=== PATIENT | female | born 1985 | race Caucasian/White ===

== ENCOUNTER 2024-03-10 13:33 | Inpatient (IN) ==
[2024-03-10] MEDS ORDERED: Lidocaine 1% VIAL 10 MG/ML 30 ML VIAL INJ PRN (14:53)
[2024-03-10 15:21] LABS: ABS Basophils 0.2 10^3/uL (0.0-0.1); ABS Lymphocytes 2.4 10^3/uL (1.0-4.8); ABS Monocytes 0.7 10^3/uL (0.0-0.9); ABS Neutrophils 9.6 10^3/uL (1.5-7.6); Eosinophil % 0.3 %; Hematocrit 42.3 % (35-45); Hemoglobin 14.4 g/dL (11.5-14.3); Lymphocyte % 18.8 %; Mean Corpuscular Volume 88.2 fL (80-97); Platelet Count 282 10^3/uL (150-450); Red Blood Count 4.79 10^6/uL (3.63-4.92); Red Cell Distribution Width 14.1 % (12-17); White Blood Count 12.9 10^3/uL (3.8-11.8)
[2024-03-10] MEDS: Lactated Ringers 1000 ml BAG 1,000 ML IV ONE (15:21)
[2024-03-10 15:55] LABS: Urine Benzodiazepine Screen None Detected (None Detect); Urine Cannabinoids Screen None Detected (None Detect); Urine Opiates Screen None Detected (None Detect)
[2024-03-10] MEDS: OBEPIDURAL (200 ML) 200 ML EPIDURAL ONE (16:08)
[2024-03-10] MEDS: Lactated Ringers 1000 ml BAG 1,000 ML IV SCH (16:09)
[2024-03-10] MEDS ORDERED: Sodium Citrate/Citric Acid LIQ 15 ML UDC PO PRN (16:39)
[2024-03-10] MEDS ORDERED: Phenylephrine 40 mcg/mL 10mL (400mcg) SYRINGE IV PUSH PRN ×2 (16:39)
[2024-03-10] MEDS ORDERED: OBEPIDURAL (200 ML) 200 ML EPIDURAL SCH (17:00)
[2024-03-10] MEDS ORDERED: Bupivacaine 0.25% w/EPI 10 ML SDV ONE (17:25)
[2024-03-10] MEDS ORDERED: Lidocaine 2% PF 5 ML VIAL ONE (17:25)
[2024-03-10 17:27] LABS: Urine Appearance Clear; Urine Bilirubin Negative (Negative); Urine Blood Negative (Negative); Urine Color Yellow; Urine Glucose Negative (Negative); Urine Ketones 2+ (Negative); Urine Nitrite Negative (Negative); Urine Protein Trace (Negative); Urine Specific Gravity 1.018 (1.002-1.030); Urine Urobilinogen Negative (Negative)
[2024-03-10] MEDS ORDERED: Ondansetron 4 mg VIAL 2 MG/ML 2 ml VIAL IV PRN (17:31)
[2024-03-10] MEDS: Oxytocin in LR 20,000 MILLI.UNIT/1,000 ML BAG IV SCH (20:50)
[2024-03-10] MEDS: Witch Hazel PAD JAR TOPICAL PRN (23:06)
[2024-03-10] MEDS: Dibucaine 1% OINT 28.35 GM TUBE PR PRN (23:06)
[2024-03-11] MEDS: Lidocaine 1.5% EPI 1:200,000 30 ML SDV ONE (05:15)
[2024-03-11] MEDS: Lactated Ringers 1000 ml BAG 1,000 ML IV ONE (05:15)
[2024-03-11] MEDS: fentaNYL 100 mcg/2 ml 50 MCG/ML VIAL ONE (05:15)
[2024-03-11] MEDS: Oxytocin in LR 20,000 MILLI.UNIT/1,000 ML BAG IV ONE (05:16)
[2024-03-11 06:30] LABS: ABS Basophils 0.1 10^3/uL (0.0-0.1); ABS Eosinophils 0.1 10^3/uL (0.0-0.5); ABS Lymphocytes 3.1 10^3/uL (1.0-4.8); ABS Neutrophils 10.3 10^3/uL (1.5-7.6); ABS Nucleated RBC 0.03 10^3/ul; Eosinophil % 0.4 %; Hematocrit 30.9 % (35-45); Hemoglobin 10.8 g/dL (11.5-14.3); Lymphocyte % 21.5 %; Mean Corpuscular Hemoglobin 30.5 pg (27-33); Mean Corpuscular Volume 87.2 fL (80-97); Mean Platelet Volume 8.5 fL (7.5-11.2); Nucleated Red Blood Cells % 0.2 %/100WBC (0.0-0.8); Platelet Count 221 10^3/uL (150-450); Red Blood Count 3.54 10^6/uL (3.63-4.92); Red Cell Distribution Width 13.9 % (12-17); White Blood Count 14.5 10^3/uL (3.8-11.8)
[2024-03-11] MEDS: Lactated Ringers 1000 ml BAG 1,000 ML IV SCH (06:39)
[2024-03-11] MEDS: FISH OIL PO SCH (09:36)
[2024-03-11] MEDS: PRENATAL VITAMIN PO SCH (09:36)
[2024-03-12 08:20] VITALS: BP 108/74
== END 2024-03-12 14:50 | disposition home or self-care (01) | DRG 806 ==
LOC: MCHOBOUT 13:33 → MCHOB 14:41